=== PATIENT | male | born 1980 | race Two or more races ===

== ENCOUNTER 2017-05-26 22:42 | Emergency (ER) | payer SELFPAY ==
[~2017-05-26] VITALS: Ht 1 cm; Wt 0.5 kg
[~2017-05-26 22:42] MED LIST: ATROPINE SULF 0.5 MG/5ML SYR IV ONE; CALCIUM CHLOR(10%) 100MG/ML 10ML SYRINGE IV ONE; DOPamine 1600MCG/ML 400MG/250ML PREMIX BAG IV ONE; EPINEPHrine HCL 1 MG/10 ML SYRG IV ONE; LIDOCAINE HCL 100 MG/5ML (2%) SYRG INJ IV ONE; SODIUM BICARBONATE 8.4% INJ 50ML SYRINGE IV ONE
[2017-05-26] MEDS ORDERED: IOHEXOL 300 MG/ML 100ML BOTTLE IJ ONE (23:02)
[2017-05-26] MEDS ORDERED: NOREPINEPHRINE BITARTRATE 250 ML IV ONE (23:03)
[2017-05-26 23:15] LABS: CONDITION Y; Hematocrit 33.4 % (41.0-53.0); Hemoglobin 11.4 g/dL (13.5-17.5); Mean Corpuscular Hemoglobin 33.7 pg (28.0-32.0); Mean Corpuscular Hgb Conc. 34.3 g/dL (32.0-36.0); Mean Corpuscular Volume 98.4 fL (80.0-100.0); Mean Platelet Volume 8.5 fL (7.4-10.4); Platelet Count (auto) 213 10^3/uL (140-450); Red Cell Distribution Width 12.7 % (11.6-16.0); White Blood Cell 6.6 10^3/uL (4.4-10.8)
[2017-05-26 23:19] LABS: Promyelocytes % 0; Reactive Lymphocytes 0
[2017-05-26] MEDS ORDERED: DEXAMETHASONE SOD PHOS 4 MG/1ML SDV INJ ONE (23:23)
[2017-05-26 23:32] LABS: Albumin 2.3 g/dL (3.4-5.0); Calcium 7.1 mg/dL (8.5-10.1); Potassium 3.8 mmol/L (3.5-5.1)
[2017-05-26 23:34] VITALS: BP 68/24
[2017-05-26 23:34] LABS: BUN/Creatinine Ratio 10.3
[2017-05-26 23:36] LABS: Bilirubin, Total 0.3 mg/dL (0.2-1.0); Total Protein 5.3 g/dL (6.4-8.2)
[2017-05-26 23:42] LABS: INR 1.2 (0.9-1.15); Partial Thromboplastin Time 40.8 sec (22.64-33.71)
[2017-05-26 23:53] LABS: Prothrombin Time 13.1 sec (9.37-12.3)
[2017-05-27 00:25] LABS: Large Platelets FEW; Metamyelocytes % 3; Myelocytes % 1; Platelet Estimate Adequa; RBC Morphology Normal
== END 2017-05-27 00:48 | disposition expired ==
LOC: EDBD 22:45 → ER 22:45
DX: I46.9 Cardiac arrest, cause unspecified (principal)
CPT/HCPCS: 36415; 51702; 71010; 80053; 85007; 85027; 85610; 85730; 86850; 86900; 86901; 86920; 92950; 94002; 99285; J0171; J0461; J1100; J1265; P9016; 36430